=== PATIENT | female | born 1960 | race Caucasian/White ===

== ENCOUNTER 2021-07-25 16:03 | Emergency (ER) | payer OTHER ==
[~2021-07-25] VITALS: Ht 154.9 cm; Wt 83.5 kg
[2021-07-25 16:09] VITALS: BP 154/86
--- NOTE | 2021-07-25 16:17 | NUR ---
PT TRAIGED AND RETURNED TO [facility]
--- NOTE | 2021-07-25 16:46 | NUR ---
PT AMBULATED TO ER BED 3
--- NOTE | 2021-07-25 16:47 | NUR ---
DR DUVAL AT BEDSIDE EVALUATING PT
[2021-07-25] MEDS ORDERED: DICYCLOMINE HCL LIQUID 10 MG/5 ML UDC PO ONE (16:55)
[2021-07-25] MEDS ORDERED: ALUMINUM HYD/MAG/SIMETHICONE 30 ML UDC PO ONE (16:55)
--- NOTE | 2021-07-25 17:06 | NUR ---
61/F BIB SELF WITH C/O ABDOMINAL PAIN SINCE THIS MORNING. PATIENT STATES SHE HAS HX OF CROHNS DISEASE AND BELIEVES THIS IS A FLARE UP. REPORTS NAUSEA AND ONE EPISODE OF DIARRHEA, REPORTS TAKING IMMODIUM AND ANTI NAUSEA MEDICATION WITH NO RELIEF. STATES PAIN IS SHARP AND BURNING AND SHE FEELS IT IS TRAVELING UPWARD. DENIES CP, SOB, FEVER OR CHILLS.
[2021-07-25 18:04] VITALS: BP 140/68
--- NOTE | 2021-07-25 18:04 | NUR ---
Patient discharged with v/s stable. Written and verbal after care instructions given and explained. Patient verbalized understanding. Ambulatory with steady gait. All questions addressed prior to discharge. Advised to follow up with PMD.
== END 2021-07-25 18:04 | disposition home or self-care (01) ==
LOC: MED 16:03
DX: R10.13 Epigastric pain (principal); R61 Generalized hyperhidrosis; I10 Essential (primary) hypertension; Z90.49 Acquired absence of other specified parts of digestive tract; Z88.5 Allergy status to narcotic agent; Z98.890 Other specified postprocedural states; Z90.710 Acquired absence of both cervix and uterus
CPT/HCPCS: 99283